=== PATIENT | female | born 1980 | race Caucasian/White ===

== ENCOUNTER → 2020-12-18 13:32 | Outpatient (CLI) | payer OTHER, SELFPAY ==
--- NOTE | ~2020-12-18 | MM_ITS ---
EXAMINATION: MM screening kathy BI w lars HISTORY: Screening mammogram TECHNIQUE: Craniocaudal and mediolateral oblique 3-D tomosynthesis images were obtained and synthetic 2-D images were generated. CAD analysis was submitted and interpreted. COMPARISON: No prior mammogram is available for comparison at this institution. BREAST PARENCHYMAL COMPOSITION: The breasts are heterogeneously dense, which may obscure small masses . FINDINGS: RIGHT BREAST: An asymmetry is present in the middle third of the outer breast 6.5 cm from the nipple on the craniocaudal view. LEFT BREAST: There is no evidence of suspicious mass, calcification, or architectural distortion to s uggest malignancy. IMPRESSION: 1. Right breast asymmetry. 2. Additional mammographic views and possible breast ultrasound are recommended to evaluate for malig ken and establish a baseline given that this is the first mammographic examination. BI-RADS Category 0: Incomplete: Needs additional imaging evaluation. Reviewed, dictated and finalized at location A. IMPRESSION: 1. Right breast asymmetry. 2. Additional mammographic views and possible breast ultrasound are recommended to evaluate for malignancy and establish a baseline given that this is the fir st mammographic examination. BI-RADS Category 0: Incomplete: Needs additional imaging evaluation.
--- NOTE | ~2020-12-18 | XR_ITS ---
XR lumbar spine 2-3V DATE: 12/18/2020 13:58 INDICATION: Low back pain TECHNIQUE: Standing AP, lateral and coned lateral lumbosacral views COMPARISON: None FINDINGS: The lumbar pedicles are intact. No fracture or bone destruction or spondylolisthesis. There is moderately prominent degenerative disc disease at L5-S1. The remaining lumbar interspaces ap pear relatively preserved. The sacroiliac joints are intact. IMPRESSION: Moderately prominent degenerative disc disease at L5-S1 Reviewed, dictated and finalized at location A.
== END ==
PROVIDERS: PCP Internal Medicine; Visit Provider Internal Medicine
DX: Z12.31 Encounter for screening mammogram for malignant neoplasm of breast (principal); M54.5 Low back pain; R92.8 Other abnormal and inconclusive findings on diagnostic imaging of breast; M51.37 Other intervertebral disc degeneration, lumbosacral region
CPT/HCPCS: 72100; 77063; 77067

== ENCOUNTER → 2021-02-03 08:23 | Outpatient (CLI) | payer OTHER, SELFPAY ==
--- NOTE | ~2021-02-03 | MMUS_ITS ---
EXAMINATION: MM diagnostic kathy RT w lars, US breast RT limited HISTORY: Right breast asymmetry on screening mammogram TECHNIQUE: Additional 3-D tomosynthesis images of the right breast were performed and synthetic 2-D i mages were generated. CAD analysis was submitted and interpreted. High resolution limited right breas t ultrasound was performed. COMPARISON: 12/06/2020 BREAST PARENCHYMAL COMPOSITION: The breasts are heterogeneously dense, which may obscure small masses . FINDINGS: MAMMOGRAPHIC FINDINGS: No persistent asymmetry is identified with spot compression of the right breast in the area questione d on screening mammogram. ULTRASOUND: There is no evidence of focal abnormal solid or cystic mass in the vicinity of the mammographic findi ng in question. IMPRESSION: 1. No mammographic or sonographic evidence of malignancy. 2. Recommend routine screening mammography in one year. BI-RADS Category 1: Negative Reviewed, dictated and finalized at location A. IMPRESSION: 1. No mammographic or sonographic evidence of malignancy. 2. Recommend routine screening mammography in one year. BI-RADS Category 1: Negative
== END ==
PROVIDERS: PCP Internal Medicine; Visit Provider Internal Medicine
DX: R92.8 Other abnormal and inconclusive findings on diagnostic imaging of breast (principal)
CPT/HCPCS: 76642; 77061; 77065; G0279

== ENCOUNTER → 2021-02-03 16:26 | Outpatient (CLI) | payer OTHER, SELFPAY ==
--- NOTE | ~2021-02-03 | MR_ITS ---
EXAMINATION: MR lumbar spine wo con DATE: 02/03/2021 17:27 INDICATION: Low back pain. TECHNIQUE: Magnetic resonance imaging (MRI) of the lumbar spine was performed without intravenous con trast. Sequences included sagittal T2-weighted FSE, sagittal T2-weighted FS FSE, sagittal T1-weighted FSE, and axial T2-weighted FSE. COMPARISON: None FINDINGS: Bone alignment is normal. Vertebral body heights are normal. There is moderately decreased disc height at L5-S1 with endplate remodeling. The distal spinal cord signal intensity is normal. The conus medullaris is at L1. The following disc levels are specifically discussed: L1-L2: The disc does not extend beyond the endplate margin. There is no facet joint osteoarthritis. T here is no neural foraminal stenosis. There is no central canal stenosis. L2-L3: The disc does not extend beyond the endplate margin. There is no facet joint osteoarthritis. T here is no neural foraminal stenosis. There is no central canal stenosis. L3-L4: The disc does not extend beyond the endplate margin. There is no facet joint osteoarthritis. T here is no neural foraminal stenosis. There is no central canal stenosis. L4-L5: The disc is bulging. There is mild right facet joint osteoarthritis. There is mild bilateral n eural foraminal stenosis. There is mild central canal stenosis. L5-S1: The disc is bulging with superimposed right subarticular zone extrusion that abuts right S1 ne rve root in right lateral recess. There is mild right facet joint osteoarthritis. There is mild bilat eral neural foraminal stenosis. There is mild central canal stenosis. There is moderate stenosis of r ight lateral recess. IMPRESSION: 1. Moderate lower lumbar spondylosis. Reviewed, dictated and finalized at location A.
== END ==
PROVIDERS: PCP Internal Medicine; Visit Provider Internal Medicine
DX: M54.50 Low back pain, unspecified (principal); M47.816 Spondylosis without myelopathy or radiculopathy, lumbar region
CPT/HCPCS: 72148

== ENCOUNTER → 2022-06-02 12:35 | Outpatient (CLI) | payer BC, SELFPAY ==
--- NOTE | ~2022-06-02 | MM_ITS ---
EXAMINATION: MM screening kathy BI w lars HISTORY: Screening TECHNIQUE: Craniocaudal and mediolateral oblique 3-D tomosynthesis images were obtained and synthetic 2-D images were generated. CAD analysis was submitted and interpreted. COMPARISON: Comparison to multiple prior studies sequentially, with oldest reviewed study dated 12/18. BREAST PARENCHYMAL COMPOSITION: The breasts are heterogeneously dense, which may obscure small masses FINDINGS: There is no evidence of suspicious mass, calcification, or architectural distortion to sugg est malignancy in either breast. There has been no suspicious interval change. IMPRESSION: 1. No mammographic evidence of malignancy. 2. Recommend routine screening mammography in one year. BI-RADS Category 1: Negative Reviewed, dictated and finalized at location A. H CLAIM CLERK
== END ==
PROVIDERS: PCP Internal Medicine; Visit Provider Internal Medicine
DX: Z12.31 Encounter for screening mammogram for malignant neoplasm of breast (principal)
CPT/HCPCS: 77063; 77067

== ENCOUNTER 2022-07-02 21:16 | Emergency (ER) | payer BC, SELFPAY ==
--- NOTE | ~2022-07-02 | XR_ITS ---
EXAMINATION: XR chest 2V DATE: 07/02/2022 22:23 INDICATION: Chest pain. TECHNIQUE: Frontal and lateral views of the chest were obtained. COMPARISON: None. FINDINGS: There is no pneumonia, pleural effusion, or pneumothorax. The heart size is normal. IMPRESSION: 1. No acute cardiopulmonary disease. Reviewed, dictated and finalized at location A. OLOGICAL EQUIPMENT SPECIALIST
--- NOTE | 2022-07-02 21:17 | ECG_ITS ---
Measurements Intervals [place] Rate: 66 P: 27 WV: 134 QRS: 33 QRSD: 82 T: 14 QT: 394 QTc: 414 Interpretive Statements SINUS RHYTHM NORMAL ECG NO PREVIOUS ECG AVAILABLE FOR COMPARISON Electronically Signed On 07-03-2022 6:39:36 ROLLER SKATE ASSEMBLER by Darrell Adler D.O.
[2022-07-02 21:38] VITALS: BP 161/100; PULSE 77; RESP 14; TEMP 36.3; O2SAT 100
[2022-07-02 21:49] LABS: Basophils Absolute Auto 0.1 K/mm3 (0.0-0.1); Basophils Percent Auto 0.8 % (0.2-1.2); Eosinophils Absolute Auto 0.2 K/mm3 (0-0.3); Eosinophils Percent Auto 2.6 % (0-4.4); Hematocrit 34.6 % (37.0-47.0); Hemoglobin 11.3 g/dL (12.0-15.0); Immature Granulocyte Absolute 0.03 K/mm3 (0.00-0.031); Immature Granulocyte Percent A 0.3 % (0-0.5); Lymphocytes Absolute Auto 2.23 K/mm3 (0.9-3.2); Lymphocytes Percent Auto 25.5 % (18.3-44.2); Mean Corpuscular HGB Conc 32.7 g/dl (32-36); Mean Corpuscular Hemoglobin 28.9 pg (26-34); Mean Corpuscular Volume 88.5 fl (80-100); Mean Platelet Volume 9.6 fl (7.4-10.4); Monocytes Absolute Auto 0.9 K/mm3 (0.1-0.6); Monocytes Percent Auto 9.8 % (2.6-8.5); Neutrophils Absolute Auto 5.3 K/mm3 (1.3-6.7); Platelet Count Result 429 k/mm3 (150-375); Red Blood Count 3.91 M/mm3 (4.2-5.4); Red Cell Distribution Width 13.5 % (11.5-14.5); White Blood Count 8.8 K/mm3 (4.5-10.0)
[2022-07-02 22:09] LABS: INR 1.1; Partial Thromboplastin Time 29.9 SECONDS (22.3-36.8); Prothrombin Time 13.3 Seconds (11.1-14.7)
[2022-07-02 22:12] LABS: Alanine Aminotransferase 39 U/L (6-35); Alkaline Phosphatase 88 U/L (38-126); Anion Gap 5 mmol/L (8-16); Aspartate Amino Transferase 27 U/L (14-36); Bilirubin,Total 0.4 mg/dL (0.2-1.3); Blood Urea Nitrogen 11 mg/dL (7-17); Calcium 8.7 mg/dL (8.4-10.2); Carbon Dioxide 26 mmol/L (22-30); Chloride 104 mmol/L (98-107); Estimated CRCL calculation 90 ml/min; Estimated Glomerular Filt Rate > 60; Glucose 101 mg/dL (65-110); Lipase 63 U/L (23-300); Potassium 3.7 mmol/L (3.4-5.0); Sodium 135 mmol/L (137-145)
[2022-07-02 22:20] LABS: Troponin I < 0.012 ng/mL (0.000-0.034)
[2022-07-03 00:59] VITALS: BP 126/93; PULSE 59; RESP 13; O2SAT 99
[2022-07-03 01:09] LABS: Troponin I < 0.012 ng/mL (0.000-0.034)
[2022-07-03 01:19] LABS: Influenza A QL RT-PCR Negative (Negative); Influenza B QL RT-PCR Negative (Negative); SARS-CoV-2 RNA PCR Negative
[2022-07-03] MEDS: ASPIRIN 81 MG CHEWABLE TABLET 324 MG PO (01:19)
--- NOTE | 2022-07-03 01:21 | PC.NURSE ---
This RN attempted IV access x2, no success. Another Rn to try
[2022-07-03 01:34] VITALS: BP 131/93; PULSE 56; RESP 15; O2SAT 100
[2022-07-03] MEDS: NITROGLYCERIN SL 0.4 MG TABLET SUBLINGUAL (01:36)
--- NOTE | 2022-07-03 01:36 | PC.NURSE ---
1st dose SL nitro given at this time. pt rates tightness 05/10.
--- NOTE | 2022-07-03 01:41 | PC.NURSE ---
2nd dose SL Nitro held. Pt rates pain 0/10. BP 122/87
--- NOTE | 2022-07-03 02:16 | ED.GENADULT ---
HPI - General Adult General Chief complaint: Chest Pain Stated complaint: chest tightness and pain Time Seen by Provider: 07/03/22 00:11 History of Present Illness HPI narrative: Patient 41-year-old female who presents to the emergency department with chief complaint of chest pain. Patient reports for the last 2 days she has been having discomfort in her chest. The patient states it feels like a tightness feeling and does report that it radiates to her left arm. The patient denies diaphoresis denies shortness of breath denies radiation to the neck. Patient reports no prior history of cardiac disease does report that she has history of hypertension but no history of hypercholesterolemia hyperlipidemia reports no prior stress test and reports no family history for cardiac disease at a young age. Related Data Allergies Allergy/AdvReac Type Severity Reaction Status Date / Time No Known Allergies Allergy Verified 07/02/22 21:16 Review of Systems Review of Systems: A 10 system review of systems was completed on the patient and is negative except for what is stated in the HPI. Nursing and ancillary documentation was reviewed. [facility] Family History Family History Mother Hypertension Patient's mother is in good health Father Patient's father is in good health Sibling Patient's sister is in good health Grandparent Cerebrovascular accident Family history of pancreatic cancer Family history of lung cancer Social History Social History Smoking status: Never smoker Alcohol intake: never Exam Narrative: GENERAL: Well-appearing, well-nourished, and in no acute distress. HEAD: Normocephalic, atraumatic. EYES: PERRLA and EOMI. ENT: Nares clear, no rhinorrhea or epistaxis. Mucous membranes moist. NECK: Supple. CHEST: Clear to auscultation. No respiratory distress. HEART: Regular rate and rhythm. No murmur heard. Normal peripheral pulses. ABDOMEN: Soft, nontender, nondistended, normal active bowel sounds. EXTREMITIES: Normal range of motion. No edema. SKIN: Warm, dry, no rash. NEURO: No focal deficits. Alert and oriented x3. PSYCH: Normal mood and affect. Course Vital Signs Vital signs: Vital Signs Temperature 36.3 C L 07/02/22 21:38 Pulse Rate 77 07/02/22 21:38 Respiratory Rate 14 07/02/22 21:38 Blood Pressure 161/100 H 07/02/22 21:38 Pulse Oximetry 100 07/02/22 21:38 Oxygen Delivery Room Air 07/02/22 21:38 Temperature 36.3 C L 07/02/22 21:38 Pulse Rate 56 L 07/03/22 01:34 Respiratory Rate 15 07/03/22 01:34 Blood Pressure 131/93 H 07/03/22 01:34 Pulse Oximetry 100 07/03/22 01:34 Oxygen Delivery Room Air 07/02/22 21:38 Medical Decision Making MDM Narrative Medical decision making narrative: EKG is sinus rhythm rate of [address] elevation or ST depression Emesis includes esophageal spasm, reflux, viral syndrome, COVID-19 influenza, ACS, NSTEMI Laboratory studies were obtained which showed 2 negative troponins in the emergency department patient's COVID test was negative The patient has a heart score of 1. Vital Signs Vital Signs: Vital Signs Temperature 36.3 C L 07/02/22 21:38 Pulse Rate 77 07/02/22 21:38 Respiratory Rate 14 07/02/22 21:38 Blood Pressure 161/100 H 07/02/22 21:38 Pulse Oximetry 100 07/02/22 21:38 Oxygen Delivery Room Air 07/02/22 21:38 Temperature 36.3 C L 07/02/22 21:38 Pulse Rate 56 L 07/03/22 01:34 Respiratory Rate 15 07/03/22 01:34 Blood Pressure 131/93 H 07/03/22 01:34 Pulse Oximetry 100 07/03/22 01:34 Oxygen Delivery Room Air 07/02/22 21:38 Lab Data 07/02/22 21:29 07/02/22 21:29 Labs: Lab Results 07/02/22 07/02/22 07/02/22 Range/Units 21:29 21:29 21:29 WBC 8.8 (4.5-10.0) K/mm3 RBC 3.91 L (4.2-5.4) M/mm3
[2022-07-03 02:26] VITALS: BP 116/85; PULSE 66; RESP 17; O2SAT 99
== END 2022-07-03 02:27 | disposition home or self-care (01) ==
PROVIDERS: Emergency Medicine; Emergency Provider Emergency Medicine; PCP Internal Medicine
DX: R07.89 Other chest pain (principal); Z20.822 Contact with and (suspected) exposure to COVID-19
CPT/HCPCS: 36415; 71046; 80053; 83690; 84484; 85025; 85610; 85730; 87636; 93005; 99284; A9270

== ENCOUNTER 2023-06-24 08:21 | Emergency (ER) | payer BC, SELFPAY ==
[2023-06-24 08:42] VITALS: BP 161/113; PULSE 94; RESP 16; TEMP 37.2; O2SAT 99
--- NOTE | 2023-06-24 08:54 | ED.URI ---
HPI - URI/Sore Throat General Chief Complaint: Upper Respiratory Infection Stated Complaint: SINUS CONGESTION Time Seen by Provider: 06/24/23 08:54 Source: patient Mode of arrival: ambulatory Limitations: no limitations History of Present Illness HPI Narrative: Fernando is a 42-year-old female patient presenting to the clinic today with complaints of sinus congestion/pressure, chills, and possible low-grade fever. States the symptoms have been going on for over 1 week. Is blowing out yellow and brown nasal discharge. MD elicited complaint: rhinorrhea, nasal congestion and sinus pain Related Data Home Medications Medication Instructions Recorded Confirmed sumatriptan succinate 25 mg tablet mg PO 06/24/23 Allergies Allergy/AdvReac Type Severity Reaction Status Date / Time No Known Allergies Allergy Verified 06/24/23 08:38 Review of Systems Review of Systems: Pertinent positives per HPI. Patient denies any fever, chills, rash, headache, visual changes, dizziness, cough, shortness of breath, chest pain, palpitations, nausea, vomiting, diarrhea, constipation, abdominal pain, or any urinary issues. PMFSH Family History Family History Mother Hypertension Patient's mother is in good health Father Patient's father is in good health Sibling Patient's sister is in good health Grandparent Cerebrovascular accident Family history of pancreatic cancer Family history of lung cancer Social History Social History Smoking status: Never smoker Alcohol intake: never Comments At the time of my signature, I reviewed and agree with the nursing past medical, surgical, social, and family history. There is no relevant family history pertinent to the patient complaint. Exam Narrative: General: Well-developed, well nourished, in no apparent distress Head: Normocephalic, atraumatic Eyes: Pupils equally round and reactive to light bilaterally, EOM intact, sclera and conjunctive clear, no discharge, lids normal Ears: TMs intact and congested, ear canals clear, no drainage, grossly hearing normal. Nose: Nares patent, yellow nasal discharge, moderate inflammation, white striae and bleeding noting and bilateral nares, maxillary and ethmoid sinus tenderness. Mouth: Oral pharynx without lesions or masses, good dentition, MMM. Postnasal drip Neck: Supple, trachea midline, no enlargement of anterior or posterior cervical nodes, no thyroid masses or goiter palpable. Cardio: Regular rate and rhythm, s1 and s2 normal, no murmur appreciated. Resp: Clear to auscultation bilaterally, no rhonchi, rales, wheezing or rubs Course Course Emergency Course: Portions of this record may have been created with voice recognition software. Level of Care: Express Care Visit Vital Signs Vital signs: Vital Signs Temperature 37.2 C 06/24/23 08:42 Pulse Rate 94 06/24/23 08:42 Respiratory Rate 16 06/24/23 08:42 Blood Pressure 161/113 H 06/24/23 08:42 Pulse Oximetry 99 06/24/23 08:42 Temperature 37.2 C 06/24/23 08:42 Pulse Rate 94 06/24/23 08:42 Respiratory Rate 16 06/24/23 08:42 Blood Pressure 161/113 H 06/24/23 08:42 Pulse Oximetry 99 06/24/23 08:42 Vital signs reviewed MDM - URI/Sore Throat MDM Narrative Medical decision making narrative: At the time of visit patient is resting comfortably on the exam table. Patient appears to be nontoxic. Plan: I suspect patient has acute bacterial rhinosinusitis. Prescription for Augmentin and prednisone was sent to the pharmacy. Supportive measures were discussed with the patient and they voiced understanding discharge instructions and agrees to treatment plan. Return precautions reviewed Differential Diagnosis Differential diagnosis: Likely upper respiratory infection, otitis media, sinusitis, viral infection, bronchi
== END 2023-06-24 09:07 | disposition home or self-care (01) ==
PROVIDERS: Emergency Provider Nurse Practitioner Family; PCP Internal Medicine
DX: J01.90 Acute sinusitis, unspecified (principal)
CPT/HCPCS: 99213; G0463

== ENCOUNTER 2024-04-04 10:43 | Outpatient (CLI) | payer BC, SELFPAY ==
--- NOTE | ~2024-04-04 | MM_ITS ---
EXAMINATION: MM screening kathy BI w lars HISTORY: Screening TECHNIQUE: Craniocaudal and mediolateral oblique 3-D tomosynthesis images were obtained and synthetic 2-D images were generated. CAD analysis was submitted and interpreted. COMPARISON: Comparison to multiple prior studies sequentially, with oldest reviewed study dated 12/18. BREAST PARENCHYMAL COMPOSITION: Dense: The breasts are heterogeneously dense, which may obscure small masses FINDINGS: There is no evidence of suspicious mass, calcification, or architectural distortion to sugg est malignancy in either breast. There has been no suspicious interval change. IMPRESSION: 1. No mammographic evidence of malignancy. 2. Recommend routine screening mammography in one year. BI-RADS Category 1: Negative Reviewed, dictated and finalized at location B. UNT RETENTION REPRESENTATIVE
== END 2024-04-04 10:44 | disposition home or self-care (01) ==
PROVIDERS: PCP Internal Medicine; Visit Provider Internal Medicine
DX: Z12.31 Encounter for screening mammogram for malignant neoplasm of breast (principal)
CPT/HCPCS: 77063; 77067

== ENCOUNTER 2025-04-07 10:40 | Outpatient (CLI) | payer BC, SELFPAY ==
--- NOTE | ~2025-04-07 | MM_ITS ---
EXAMINATION: MM screening kathy BI w lars HISTORY: Screening. TECHNIQUE: Craniocaudal and mediolateral oblique 3-D tomosynthesis images were obtained and synthetic 2-D images were generated. CAD analysis was submitted and interpreted. COMPARISON: 2023, 2022, and 2020. BREAST PARENCHYMAL COMPOSITION: Dense: The breasts are heterogeneously dense FINDINGS: No suspicious masses are seen. There are no suspicious calcifications. No unexplained architectural distortion is seen. There are no skin or nipple abnormalities identified. There is no adenopathy seen on the images submitted. IMPRESSION: No mammographic or sonographic evidence to suggest malignancy is seen. The patient may return to screening mammography as per ACR guidelines. BI-RADS 1 - Negative. Reviewed, dictated and finalized at location B. AZZO FINISHER IMPRESSION: No mammographic or sonographic evidence to suggest malignancy is seen. The tom ent may return to screening mammography as per ACR guidelines. BI-RADS 1 - Negative.
== END 2025-04-07 10:41 | disposition home or self-care (01) ==
PROVIDERS: PCP Obstetrics & Gynecology; Visit Provider Obstetrics & Gynecology
DX: Z12.31 Encounter for screening mammogram for malignant neoplasm of breast (principal)
CPT/HCPCS: 77063; 77067